=== PATIENT | female | born 1975 | race Caucasian/White ===

== ENCOUNTER 2022-05-07 17:13 | Observation (INO) ==
[2022-05-07 18:11] LABS: Red Cell Distribution Width 12.9 % (11.5-14.5)
[2022-05-07 18:13] LABS: Basophils % 0.5 %; Eosinophils % 0.4 %; Hematocrit 35.4 % (35.3-44.9); Hemoglobin 12.1 g/dL (11.5-15.4); Immature Granulocytes % 0.7 % (0-4); Immature Platelets 2.5 % (1.1-6.1); Lymphocytes # 2.2 K/mcL (0.6-4.6); Mean Corpuscular HGB Conc 34.2 g/dL (31.6-35.5); Mean Corpuscular Hemoglobin 29.8 pg (28.0-33.3); Mean Corpuscular Volume 87.2 fL (83.0-100.0); Mean Platelet Volume 9.9 fL (9.4-12.4); Monocytes # 0.6 K/mcL (0.0-1.3); Neutrophils # 4.6 K/mcL (1.6-8.9); Nucleated Red Blood Cells 0.3 /100 WBC (0); Platelet Count 228 K/mcL (140-400); Red Blood Count 4.06 M/mcL (3.82-4.97); Segmented Neutrophils % 61.4 %; White Blood Count 7.5 K/mcL (4.3-11.1)
[2022-05-07 18:33] LABS: Alanine Aminotransferase 72 Units/L (7-52); Albumin 3.9 g/dL (3.5-5.7); Albumin/Globulin Ratio 1.1 (1.1-2.2); Alkaline Phosphatase 49 Units/L (34-104); Amylase 131 Units/L (29-103); Aspartate Amino Transferase 54 Units/L (13-39); BUN/Creatinine Ratio 18 (6-26); Bilirubin,Direct 0.1 mg/dL (0.0-0.2); Bilirubin,Indirect 0.4 mg/dL (0.0-1.0); Bilirubin,Total 0.5 mg/dL (0.3-1.0); Blood Urea Nitrogen 12 mg/dL (6-20); Carbon Dioxide 19 mEq/L (23-29); Chloride 105 mEq/L (98-107); Globulin 3.5 g/dL (2.4-3.5); Glucose 314 mg/dL (70-105); Lipase 395 Units/L (11-82); Osmolality,Calculated 290 (280-300); Sodium 134 mEq/L (136-145); Total Protein 7.4 g/dL (6.4-8.9); Troponin I < 0.03 ng/mL (< 0.04); eGFR For African Americans > 60 (> 60); eGFR For Non-African Americans > 60 (> 60)
[2022-05-07] MEDS ORDERED: Morphine Sulfate 2 MG/ML SYRINGE IVP ONE ×2 (18:35→20:57)
[2022-05-07] MEDS ORDERED: 0.9 % Sodium Chloride 1,000 ML IVC ONE (18:35)
[2022-05-07] MEDS ORDERED: Ondansetron 4 MG/2 ML VIAL IVP ONE (18:36)
[2022-05-07] MEDS ORDERED: Isovue-370 500 ML BOTTLE IVP ONE (18:58)
[2022-05-07 19:37] LABS: Bilirubin,Urine Negative (Negative); Blood,Urine Negative (Negative); Clarity,Urine Clear (Clear); Color,Urine Light-Yellow (Yellow); Glucose,Urine (UA) >=1000 mg/dL (Normal); Ketones,Urine Negative (Negative); Leukocyte Esterase,Urine Negative (Negative); Mucus,Urine Few per lpf (None-Few); Nitrite,Urine Negative (Negative); PH,Urine 5.5 pH Units (5.0-8.0); Protein,Urine Negative (Neg-Trace); RBC,Urine 0-3 per hpf (0-3); Specific Gravity,Urine 1.024 (1.010-1.025); Squamous Epithelial Cell,Urine Few per hpf (None-Few); Urobilinogen,Urine Normal (Normal)
[2022-05-07] MEDS ORDERED: Ringers Solution, Lactated 1,000 ML IVC ONE (21:39)
[2022-05-07] MEDS ORDERED: Melatonin 3 MG TABLET PO PRN (23:17)
[2022-05-07] MEDS ORDERED: *HR* HYDROcodone/Acet 5/325 mg TABLET PO PRN (23:17)
[2022-05-07] MEDS ORDERED: *HR* OxyCODONE Immed Rel 5 MG TABLET PO PRN (23:17)
[2022-05-07] MEDS ORDERED: Naloxone 0.4 MG/ML INJ IVP PRN (23:17)
[2022-05-07] MEDS ORDERED: Pantoprazole 40 MG VIAL IVP ONE (23:28)
[2022-05-07] MEDS ORDERED: Insulin DETEMIR 100 UNIT/ML X5UNITS SUBQ ONE (23:29)
[2022-05-07] MEDS ORDERED: Ringers Solution, Lactated 1,000 ML IVC SCH (23:30)
[2022-05-07] MEDS ORDERED: Ketorolac 30 MG/ML VIAL IM PRN (23:30)
[2022-05-08 00:39] LABS: Prothrombin Time 11.3 Seconds (9.4-12.1)
[2022-05-08 00:50] LABS: C-Reactive Protein 7 mg/L (Less than 10); Chol/HDL Ratio 5.5 (0-4.9); Cholesterol 153 mg/dL (< 200); Ethanol < 10 mg/dL (Less than 10); HDL Cholesterol 28 mg/dL (40-59); LDL Cholesterol,Calculated 67 mg/dL (< 100); Triglycerides 288 mg/dL (< 150)
[2022-05-08 00:56] LABS: Procalcitonin 0.11 ng/mL (0.00-0.15)
[2022-05-08] MEDS ORDERED: Gabapentin 100 MG CAPSULE PO ONE ×2 (00:59→02:58)
[2022-05-08] MEDS: *HR* OxyCODONE Immed Rel 5 MG TABLET PO PRN ×3 (01:31→22:45)
[2022-05-08] MEDS ORDERED: *HR* Dextrose 50 % in Water (Syg) 50 ML SYRINGE IVP PRN (03:11)
[2022-05-08] MEDS ORDERED: Dextrose Gel 15 GM/37.5 ML TUBE PO PRN ×2 (03:11)
[2022-05-08] MEDS ORDERED: D5% in Water 1,000 ML IVC PRN (03:11)
[2022-05-08] MEDS ORDERED: Saliva Stimulant 44.3ml BOTTLE PO PRN (03:12)
[2022-05-08] MEDS: Propranolol LA (24 HR) 60 MG CAP.SA.24H PO SCH (03:48)
[2022-05-08] MEDS: Ringers Solution, Lactated 1,000 ML IVC SCH ×2 (03:49→13:39)
[2022-05-08 04:22] LABS: Hepatitis B Surface Antigen Nonreactive (Nonreactive)
[2022-05-08] MEDS: *HR* Heparin 5,000 UNIT/ML VIAL SQ SCH ×3 (04:40→21:21)
[2022-05-08 04:52] LABS: Hepatitis B Core IgM Nonreactive (Nonreactive)
[2022-05-08 04:53] LABS: Hepatitis A Antibody IgM Nonreactive (Nonreactive)
[2022-05-08 05:56] LABS: Basophils # 0.1 K/mcL (0.0-0.2); Basophils % 0.7 %; Eosinophils % 0.3 %; Hemoglobin 11.5 g/dL (11.5-15.4); Immature Granulocytes % 0.4 % (0-4); Lymphocytes # 2.6 K/mcL (0.6-4.6); Lymphocytes % 35.1 %; Mean Corpuscular HGB Conc 32.9 g/dL (31.6-35.5); Mean Corpuscular Hemoglobin 29.3 pg (28.0-33.3); Mean Corpuscular Volume 89.1 fL (83.0-100.0); Mean Platelet Volume 10.5 fL (9.4-12.4); Monocytes # 0.5 K/mcL (0.0-1.3); Neutrophils # 4.1 K/mcL (1.6-8.9); Platelet Count 167 K/mcL (140-400); Red Blood Count 3.93 M/mcL (3.82-4.97); Red Cell Distribution Width 12.8 % (11.5-14.5); Segmented Neutrophils % 56.5 %; White Blood Count 7.3 K/mcL (4.3-11.1)
[2022-05-08 06:04] LABS: Prothrombin Time 11.6 Seconds (9.4-12.1)
[2022-05-08 06:06] LABS: Activated Partial Thrombo Time 21.6 Seconds (26.0-36.0)
[2022-05-08 06:13] LABS: Estimated Average Glucose 174 mg/dl; Hemoglobin A1C 7.7 %
[2022-05-08 07:09] LABS: Alanine Aminotransferase 61 Units/L (7-52); Albumin 3.6 g/dL (3.5-5.7); Albumin/Globulin Ratio 1.3 (1.1-2.2); Alkaline Phosphatase 46 Units/L (34-104); Aspartate Amino Transferase 45 Units/L (13-39); BUN/Creatinine Ratio 16 (6-26); Bilirubin,Total 0.6 mg/dL (0.3-1.0); Blood Urea Nitrogen 9 mg/dL (6-20); Calcium 8.6 mg/dL (8.6-10.3); Carbon Dioxide 20 mEq/L (23-29); Chloride 109 mEq/L (98-107); Globulin 2.8 g/dL (2.4-3.5); Glucose 149 mg/dL (70-105); Magnesium 1.2 mg/dL (1.6-2.6); Osmolality,Calculated 289 (280-300); Phosphorous 3.6 mg/dL (2.7-4.5); Potassium 3.8 mEq/L (3.5-5.1); Sodium 139 mEq/L (136-145); Thyroid Stimulating Hormone 2.017 mcIU/mL (0.340-5.600); Total Protein 6.4 g/dL (6.4-8.9); eGFR For African Americans > 60 (> 60); eGFR For Non-African Americans > 60 (> 60)
[2022-05-08] MEDS ORDERED: Nicotine 14 MG PATCH.TD24 TD SCH (09:00)
[2022-05-08 09:43] LABS: Vitamin D 25 Hydroxy 10 ng/mL (30-80)
[2022-05-08] MEDS: lisinopriL 20 MG TABLET PO SCH (10:06)
[2022-05-08] MEDS: Gabapentin 100 MG CAPSULE PO SCH ×3 (10:06→21:21)
[2022-05-08] MEDS: Multivit/Ca/Min/Fe/FA 1 TAB TABLET PO SCH (10:06)
[2022-05-08] MEDS: Nicotine 21 MG PATCH.TD24 TD SCH (10:07)
[2022-05-08] MEDS: Chlorhexidine Rinse 15 ML MOUTHWASH MM SCH ×2 (10:07→21:21)
[2022-05-08] MEDS: Pantoprazole 40 MG VIAL IVP SCH (10:12)
[2022-05-08 13:19] LABS: Hepatitis C Virus Antibody Reactive (Nonreactive)
[2022-05-08 17:55] LABS: Rheumatoid Factor < 10 IU/mL (Less than 14)
[2022-05-08] MEDS: Ondansetron 4 MG/2 ML VIAL IVP PRN (18:41)
[2022-05-08] MEDS: Ketorolac 30 MG/ML VIAL IVP PRN (19:56)
[2022-05-08] MEDS: Acetaminophen 325 MG TABLET PO PRN (23:34)
[2022-05-09 02:42] LABS: Amphetamine Screen,Urine Negative ng/mL (Cutoff=1000); Barbiturate Screen,Urine Negative ng/mL (Cutoff=200); Benzodiazepines Screen,Urine Negative ng/mL (Cutoff=200); Cannabinoid Screen,Urine Negative ng/mL (Cutoff = 50); Cocaine Screen,Urine Negative ng/mL (Cutoff= 300); Opiate Screen,Urine Positive ng/mL (Cutoff=300); Phencyclidine Screen,Urine Negative ng/mL (Cutoff=25)
[2022-05-09] MEDS: Ketorolac 30 MG/ML VIAL IVP PRN ×2 (03:22→09:40)
[2022-05-09 03:42] VITALS: PULSE 85
[2022-05-09] MEDS: Ondansetron 4 MG/2 ML VIAL IVP PRN (03:47)
[2022-05-09] MEDS: *HR* OxyCODONE Immed Rel 5 MG TABLET PO PRN ×2 (05:43→10:25)
[2022-05-09] MEDS: *HR* Heparin 5,000 UNIT/ML VIAL SQ SCH (05:44)
[2022-05-09 06:37] VITALS: BP 107/71; TEMP 98.4; O2SAT 93
[2022-05-09 07:39] LABS: BUN/Creatinine Ratio 18 (6-26); Blood Urea Nitrogen 10 mg/dL (6-20); Calcium 8.8 mg/dL (8.6-10.3); Carbon Dioxide 27 mEq/L (23-29); Chloride 104 mEq/L (98-107); Glucose 222 mg/dL (70-105); Magnesium 1.3 mg/dL (1.6-2.6); Osmolality,Calculated 288 (280-300); Phosphorous 3.3 mg/dL (2.7-4.5); Potassium 3.8 mEq/L (3.5-5.1); Sodium 136 mEq/L (136-145); eGFR For African Americans > 60 (> 60); eGFR For Non-African Americans > 60 (> 60)
[2022-05-09] MEDS: lisinopriL 20 MG TABLET PO SCH (08:30)
[2022-05-09] MEDS: Acetaminophen 325 MG TABLET PO PRN (08:30)
[2022-05-09] MEDS: Gabapentin 100 MG CAPSULE PO SCH (08:31)
[2022-05-09] MEDS: Propranolol LA (24 HR) 60 MG CAP.SA.24H PO SCH (08:31)
[2022-05-09] MEDS: Multivit/Ca/Min/Fe/FA 1 TAB TABLET PO SCH (08:31)
[2022-05-09] MEDS: Chlorhexidine Rinse 15 ML MOUTHWASH MM SCH (08:31)
[2022-05-09] MEDS: Pantoprazole 40 MG VIAL IVP SCH (08:33)
[2022-05-09] MEDS: Nicotine 21 MG PATCH.TD24 TD SCH (08:38)
[2022-05-09] MEDS ORDERED: Insulin DETEMIR 100 UNIT/ML X5UNITS SUBQ SCH (09:00)
[2022-05-09] MEDS ORDERED: Insulin LISPRO 300 UNITS/3 ML VIAL SUBQ SCH (11:30)
== END 2022-05-09 10:49 | disposition home or self-care (01) ==
LOC: 3BNU 17:13 → EMEROOARM 17:13 → SUATTDRO 22:36 → 3BNU 05-08 00:12
PROVIDERS: ADMIT Internal Medicine; ATTEND Internal Medicine